=== PATIENT | female | born 1945 | race Caucasian/White ===

== ENCOUNTER 2018-07-31 09:17 | Inpatient (IN) ==
[2018-07-25 14:44] LABS: Appearance,Urine CLEAR; Bacteria,Urine 0 /hpf (0); Bilirubin,Urine NEG (NEG); Color,Urine YELLOW; Glucose,Urine (UA) NEGATIVE (NEG); Leukocyte Esterase,Urine NEG /uL (NEG); Protein,Urine NEG (NEG); Urine Blood 0.03 mg/dL (<0.03); Urine RBC 2 /hpf (0-1); Urine Squamous Epithelial Cell 1 /hpf (0-4); Urine Transitional Epi Cells < 1 /hpf (0-2); Urine WBC 1 /hpf (0-4); Urobilinogen,Urine NEG (NEG)
[2018-07-25 18:45] LABS: Blood Urea Nitrogen 17 mg/dl (8-23)
[2018-07-25 18:55] LABS: Basophils # (Auto) 0 K/mcL (0.0-0.3); Basophils % (Auto) 0.6 % (0.0-2.0); Eosinophils # (Auto) 0.3 K/mcL (0.0-0.7); Eosinophils % (Auto) 4.5 % (0.0-7.0); Lymphocytes # (Auto) 1.5 K/mcL (1.5-4.8); Lymphocytes % (Auto) 20.6 % (15.5-49.0); Mean Cell Volume 90.3 fL (80.0-100.0); Mean Corpuscular HGB Conc 33.6 g/dL (31.0-36.0); Mean Corpuscular Hemoglobin 30.3 pg (26.0-34.0); Monocytes # (Auto) 0.4 K/mcL (0.1-0.9); Monocytes % (Auto) 5.3 % (1.0-12.0); Platelet Count 308 K/mcL (140-440); RBC 4.23 M/mcL (4.00-5.20); Red Cell Distribution Width 12.4 % (11.5-14.5)
[2018-07-25 20:12] LABS: Estimated Average Glucose(eAG) 137 mg/dL; Hemoglobin A1C 6.4 % HGB (4.0-6.0)
[~2018-07-31 09:17] MED LIST: 0.9 % SODIUM CHLORIDE 9 ML, KETOROLAC 30 MG, ROPIVACAINE HCL/PF 49.5 ML, EPINEPHrine 0.... IJ SCH; ACETAMINOPHEN 500 MG TABLET PO SCH; CELECOXIB 200 MG CAPSULE PO SCH; PREGABALIN 75 MG CAPSULE PO SCH; ceFAZolin 1 GM VIAL IV SCH; oxyCODONE 10 MG TAB.ER.12H PO SCH
[2018-07-31] MEDS ORDERED: ONDANSETRON 4 MG/2 ML VIAL IV ONE (12:05)
[2018-07-31] MEDS ORDERED: MIDAZOLAM 5 MG/5 ML VIAL IV ONE (12:05)
[2018-07-31] MEDS ORDERED: DEXAMETHASONE 10 MG/ML VIAL IV ONE (12:05)
[2018-07-31] MEDS ORDERED: TRANEXAMIC ACID 1,000 MG/10 ML VIAL IV ONE ×2 (12:05→13:13)
[2018-07-31] MEDS ORDERED: ePHEDrine 50 MG/ML AMPUL IV ONE (12:05)
[2018-07-31] MEDS ORDERED: PROPOFOL 200 MG/20 ML VIAL IV ONE (12:05)
[2018-07-31] MEDS ORDERED: LIDOCAINE HCL/PF 100 MG/5 ML SYRINGE IV ONE (12:05)
[2018-07-31] MEDS ORDERED: GENTAMICIN SULFATE 800 MG/20 ML VIAL IR ONE (12:21)
[2018-07-31] MEDS ORDERED: FLUMAZENIL 0.1 MG/ML ML IV PRN (13:07)
[2018-07-31] MEDS ORDERED: diphenhydrAMINE 50 MG/ML VIAL IV PRN (13:07)
[2018-07-31] MEDS ORDERED: fentaNYL 100 MCG/2 ML VIAL IV PRN (13:07)
[2018-07-31] MEDS ORDERED: ONDANSETRON 4 MG/2 ML VIAL IV PRN ×2 (13:07→13:13)
[2018-07-31] MEDS ORDERED: BENZOCAINE/MENTHOL 1 LOZENGE PO PRN ×2 (13:07→13:13)
[2018-07-31] MEDS ORDERED: LACTATED RINGERS 250 ML IV PRN (13:07)
[2018-07-31] MEDS ORDERED: NALOXONE HCL 0.4 MG/ML VIAL IV PRN (13:07)
[2018-07-31] MEDS ORDERED: PROMETHAZINE 25 MG/ML VIAL IV PRN (13:07)
[2018-07-31] MEDS ORDERED: IPRATROPIUM/ALBUTEROL 3 ML AMPUL.NEB NEB PRN (13:07)
[2018-07-31] MEDS ORDERED: MEPERIDINE 25 MG/ML SYRINGE IV PRN (13:07)
--- NOTE | 2018-07-31 13:12 | Brief Operative Note ---
Date of procedure: 07/31/18 Pre-op diagnosis: Left hip djd Post-op diagnosis: same Procedure: Left hip tarah Grafts/Implants: Yes Anesthesia: GETA Complications: none Surgeon: Camacho Elise High Value Associate: Niranjan Rice Estimated blood loss (cc): 50 Specimens Removed/Pathology: none sent Condition: stable Disposition: PACU
[2018-07-31] MEDS ORDERED: ACETAMINOPHEN 325 MG TABLET PO PRN (13:13)
[2018-07-31] MEDS ORDERED: FLEETS ADULT ENEMA PR PRN (13:13)
[2018-07-31] MEDS ORDERED: BISACODYL 10 MG SUPP.RECT PR PRN (13:13)
[2018-07-31] MEDS ORDERED: TEMAZEPAM 15 MG CAPSULE PO PRN (13:13)
[2018-07-31] MEDS ORDERED: HYDROmorphone 2 MG/ML VIAL IV PRN (13:13)
[2018-07-31] MEDS ORDERED: POLYETHYLENE GLYCOL 3350 17 GM PACKET PO PRN (13:13)
[2018-07-31] MEDS ORDERED: LACTATED RINGERS 1,000 ML IV SCH (13:15)
[2018-07-31] MEDS ORDERED: ALENDRONATE SODIUM 70 MG TABLET PO SCH (13:15)
[2018-07-31] MEDS: 0.9 % SODIUM CHLORIDE 10 ML SYRINGE IV SCH ×2 (14:13→21:34)
--- NOTE | 2018-07-31 14:21 | XRay Report ---
CLINICAL INFORMATION: Left hip replacement TECHNIQUE: AP pelvis. Crosstable lateral left hip COMPARISON: None. FINDINGS: Status post left total hip arthroplasty. Acetabular and femoral head components are in anatomic position. There is postsurgical soft tissue and intra-articular gas. No pelvic fracture. Right hip is negative. There is degenerative disc disease in the lower lumbar spine. IMPRESSION: Status post left total hip arthroplasty Interpreted and Authenticated by: Magnus Kam 07/31/18
--- NOTE | 2018-07-31 14:28 | Operative Note ---
DATE OF OPERATION: 07/31/2018 PREOPERATIVE DIAGNOSIS: Left hip degenerative arthritis, severe. POSTOPERATIVE DIAGNOSIS: Left hip degenerative arthritis, severe. PROCEDURE: Left total hip arthroplasty. SURGEON: Camacho Elise M.D. RADIATION CONTROL HEALTH PHYSICIST: Niranjan Rice PA-C. ANESTHESIA: General LMA anesthesia. COMPLICATIONS: None. DESCRIPTION OF PROCEDURE: The patient was brought to the operating room and put to sleep with general LMA anesthesia. Once asleep, the patient had the left hip sterilely prepped and draped in the usual sterile fashion. Timeout was performed confirming the operative site. Ioban was placed over the skin. We then made a superior approach to the hip. Preop antibiotics and tranexamic acid had been given. Once it all had been confirmed, we then proceeded with a total hip arthroplasty. We exposed the superior portion of the hip and capsule. We then placed retractors to release the piriformis obturator internus and superior capsule. We dislocated the hip superiorly and then made our neck cut at 30 mm below the center of hip rotation. Once done, we then reamed up the size on the hip up to a 48, implanted a 48 cup with a 40 mm screw. We then placed a standard liner with no garcia. The cup had been positioned in 20 degrees of anteversion and 40 degrees of inclination. Once done, we then reamed up on the hip up to the size for a 5, broached to a 5. We trialed the size 5 with a standard neck length. This seemed to fit very nicely. We then cemented into place a size 5 stem with a canal restrictor and a 12 mm distal centralizer. Once the cement was set up, we then trialed the 2.5 head. This was reduced and x-ray taken that showed perfect leg length and alignment. We then implanted a 2.5 plus ceramic head which was 36 mm in diameter. This was reduced, very stable. We irrigated, repaired the capsule with #1 Ethibond. We closed the fascial layer with #1 Stratafix interlocking ___. The patient tolerated this well. There was no complication. We closed the skin with Stratafix and adhesive closure. The patient had a sterile bandage applied. Blood loss was about 100 mL. MAINE:joel Job ID: [id number] Doc ID: [id number] Camacho Elise MD
[2018-07-31] MEDS: IPRATROPIUM/ALBUTEROL 3 ML AMPUL.NEB NEB PRN (17:25)
[2018-07-31] MEDS: 0.45 % SODIUM CHLORIDE 1,000 ML IV SCH ×2 (17:41→23:17)
[2018-07-31] MEDS: ceFAZolin 1 GM VIAL IV SCH (19:23)
[2018-07-31] MEDS: ASPIRIN 325 MG ENTERIC COATED TABLET PO SCH (21:11)
[2018-07-31] MEDS: SENNOSIDES 1 TABLET PO SCH (21:11)
[2018-07-31] MEDS: AMITRIPTYLINE 25 MG TABLET PO SCH (21:12)
[2018-07-31] MEDS: DOCUSATE SODIUM 100 MG CAPSULE PO SCH (21:12)
[2018-07-31] MEDS: FLUTICASONE/SALMETEROL 250/50 INHALER #14 INH SCH (21:13)
[2018-07-31] MEDS: oxyCODONE/APAP 5/325MG TABLET PO PRN ×2 (21:32→23:14)
[2018-07-31] MEDS: KETOROLAC 15 MG/ML VIAL IV PRN (23:12)
[2018-08-01] MEDS: ceFAZolin 1 GM VIAL IV SCH (03:08)
[2018-08-01] MEDS: 0.9 % SODIUM CHLORIDE 10 ML SYRINGE IV SCH ×4 (03:17→20:58)
[2018-08-01] MEDS: oxyCODONE/APAP 5/325MG TABLET PO PRN ×5 (03:52→20:57)
--- NOTE | 2018-08-01 07:40 | Orthopedic Progress Note ---
Subjective Patient information: Note initiated : 08/01/18 at 7:39 am Service Date, if different from initiated Date: [] Patient: Latoya Choudhury 73 y/o F admitted on 07/31/18 for Left Total Hip Arthroplasty. Chief Complaint: [Pt is stable this morning on post operative day 1 without any significant concerns or complaints. Patients vital signs have remained stable. Patients dressing is dry and is grossly intact from a neurovascular and motor standpoint. Patients 10 point ROS is otherwise negative. ] Objective Vital signs: Vital Signs Temp Pulse Pulse Resp BP Pulse Ox 08/01/18 07:03 98.3 F 68 18 97/55 93 08/01/18 03:25 97.5 F 75 18 129/63 99 08/01/18 00:00 97.7 F 96 H 20 138/73 95 07/31/18 23:17 95 07/31/18 21:23 92 07/31/18 20:00 98.1 F 91 H 20 138/77 98 07/31/18 19:54 96 07/31/18 17:34 98 H 16 07/31/18 17:26 98 07/31/18 17:08 134/72 97 07/31/18 16:08 130/72 99 07/31/18 15:38 127/75 99 07/31/18 15:09 120/62 96 07/31/18 14:53 126/71 99 07/31/18 14:38 121/68 100 07/31/18 14:23 122/62 100 07/31/18 14:08 116/66 100 07/31/18 14:05 75 18 116/66 100 07/31/18 13:59 97.9 F 72 19 123/51 96 07/31/18 13:51 97.0 F 70 13 127/69 98 07/31/18 13:41 96.8 F L 71 13 116/62 100 07/31/18 13:31 97.7 F 70 13 118/60 100 07/31/18 13:25 68 14 104/53 100 07/31/18 13:20 70 14 108/61 100 07/31/18 13:18 97.5 F 70 15 116/55 98 07/31/18 09:17 76 18 137/70 100 Intake and Output 07/31/18 08/01/18 08/01/18 21:59 05:59 13:59 Intake Total 290 / 290 1350 / 1350 Output Total 53 / 53 452 / 452 Balance 237 / 237 898 / 898 Intake: IV 1000 / 1000 Sodium Chloride 0.45% 1,000 ml 1000 / 1000 @ 100 mls/hr IV .Q10H BRITTNI Rx#: [id number] Oral 240 / 240 350 / 350 IV - Manual Only 50 / 50 Output: Void Amount 50 / 50 450 / 450 # of times incontinent of urine 3 / 3 2 / 2 Other: Meal Dinner Yogurt grahm crackers Percent of Meal Consumed 100% 100% 100% Feeding Ability Independent Independent Independent Urine Color Bright Yellow Weight 117 lb 8 oz Intake & Output: Intake & Output 07/31/18 08/01/18 08/01/18 21:59 05:59 13:59 Intake Total 290 / 290 1350 / 1350 Output Total 53 / 53 452 / 452 Balance 237 / 237 898 / 898 Weight 117 lb 8 oz Intake: IV 1000 / 1000 Sodium Chloride 0.45% 1,000 ml 1000 / 1000 @ 100 mls/hr IV .Q10H [facility], [facility]–1983 Rx#: [id number] Oral 240 / 240 350 / 350 IV - Manual Only 50 / 50 Output: Void Amount 50 / 50 450 / 450 # of times incontinent of urine 3 / 3 2 / 2 Other: Meal Dinner Yogurt grahm crackers Percent of Meal Consumed 100% 100% 100% Feeding Ability Independent Independent Independent Urine Color Bright Yellow Incision: Yes healing Incision clean and dry: Yes Dressing: Yes clean Weight bearing status: full Neurological exam IM: Yes motor sensory intact, Yes neurovascular intact Extremities exam IM: Yes Foot pink and warm, Yes neurovascular intact - Labs CBC & BMP: 08/01/18 04:20 07/25/18 13:27 Labs: Orthopedic Labs 07/25/18 13:26 PT 12.9 INR 1.0 APTT 33 08/01/18 07/25/18 04:20 13:27 Hgb 12.8 Hct 32.7 L 38.2 Assessment and Plan (1) Hx of total hip arthroplasty The patient has been educated regarding dressing care, Physical Therapy recommendations, home exercises, restrictions, and follow up appointments. The patient has had all necessary DME prescribed. The patient has remained relatively stable during their hospital course. Status: Acute
--- NOTE | 2018-08-01 07:43 | Discharge Summary ---
Ortho Discharge - [facility] - Patient Instructions Diet: Regular Diet Activity: activity as tolerated, weight bearing as tolerated Total Hip Protocol: Follow activity instructions as provided by Physical Therapy. Dressing Care: May shower in 2 days - Problem Maintenance (1) Hx of total hip arthroplasty Status: Acute - Follow Up Plan Follow Up Appointments: Niranjan Rice PA-C [Physician Mirror Inspector] - 08/15/18 1:50 pm Disposition: Home, Self-Care Prognosis: Good Rehab Potential: Good I certify that the patient requires SNF services: No Overall status at discharge: patient is progressing back to baseline - Orders For Discharge Prescriptions: Aspirin [Ecotrin] 325 mg PO BID #60 tab.ec Docusate Sodium [Colace] 100 mg PO BID #60 cap oxyCODONE/APAP [Percocet 5-325 mg] 1 - 2 tab PO Q4HP PRN #75 tab PRN Reason: Pain Level 3-6
[2018-08-01] MEDS: FLUTICASONE/SALMETEROL 250/50 INHALER #14 INH SCH ×2 (08:21→21:48)
[2018-08-01] MEDS: FLUTICASONE PROPIONATE SPRAY.NAS NS SCH (08:22)
[2018-08-01] MEDS: DOCUSATE SODIUM 100 MG CAPSULE PO SCH ×2 (09:03→20:57)
[2018-08-01] MEDS: ASPIRIN 325 MG ENTERIC COATED TABLET PO SCH ×2 (09:03→20:57)
[2018-08-01] MEDS: LOSARTAN 50 MG TABLET PO SCH (09:03)
[2018-08-01] MEDS: CALCIUM W/VIT D3 500 MG TABLET PO SCH (09:03)
[2018-08-01] MEDS: MULTIVIT,THER IRON,CA,FA & MIN 1 TABLET PO SCH (09:03)
[2018-08-01] MEDS: IPRATROPIUM/ALBUTEROL 3 ML AMPUL.NEB NEB PRN ×2 (11:18→18:42)
[2018-08-01] MEDS: AMITRIPTYLINE 25 MG TABLET PO SCH (20:57)
[2018-08-01] MEDS: SENNOSIDES 1 TABLET PO SCH (20:57)
[2018-08-01] MEDS: KETOROLAC 15 MG/ML VIAL IV PRN (23:13)
[2018-08-02] MEDS: IPRATROPIUM/ALBUTEROL 3 ML AMPUL.NEB NEB PRN ×3 (01:17→13:14)
[2018-08-02] MEDS: 0.9 % SODIUM CHLORIDE 10 ML SYRINGE IV SCH ×3 (04:00→22:54)
--- NOTE | 2018-08-02 07:12 | Orthopedic Progress Note ---
Subjective Patient information: Note initiated : 08/02/18 at 7:11 am Service Date, if different from initiated Date: [] Patient: Latoya Choudhury 73 y/o F admitted on 07/31/18 for Left Total Hip Arthroplasty. Chief Complaint: [continue to do well with no nausea or vomiting amb well 200 feet] Objective Vital signs: Vital Signs Temp Pulse Pulse Resp BP BP Pulse Ox 08/02/18 06:52 98.7 F 20 115/58 97 08/02/18 04:00 97.7 F 69 16 92/54 97 08/02/18 01:18 83 17 08/01/18 23:35 97.9 F 83 18 107/57 96 08/01/18 20:00 98.1 F 73 18 126/70 96 08/01/18 19:47 73 16 94 08/01/18 18:45 75 16 08/01/18 16:09 97.5 F 89 14 100/67 96 08/01/18 12:29 98.1 F 86 14 103/61 94 Intake and Output 08/01/18 08/02/18 08/02/18 21:59 05:59 13:59 Intake Total 200 / 200 Output Total 350 / 350 100 / 100 Balance -350 / -350 100 / 100 Intake: Oral 200 / 200 Output: Void Amount 350 / 350 100 / 100 Other: Meal Dinner Percent of Meal Consumed 50% Urine Color Bright Yellow Bright Yellow # Voids 1 1 Weight 118 lb Intake & Output: Intake & Output 08/01/18 08/02/18 08/02/18 21:59 05:59 13:59 Intake Total 200 / 200 Output Total 350 / 350 100 / 100 Balance -350 / -350 100 / 100 Weight 118 lb Intake: Oral 200 / 200 Output: Void Amount 350 / 350 100 / 100 Other: Meal Dinner Percent of Meal Consumed 50% Urine Color Bright Yellow Bright Yellow # Voids 1 1 Incision: Yes healing Incision clean and dry: Yes Dressing: Yes clean Weight bearing status: full Neurological exam IM: Yes oriented X3, Yes neurovascular intact Extremities exam IM: Yes Foot pink and warm, Yes neurovascular intact - Periperhal Pulses Peripheral pulses: 1+: dorsalis pedis (L), 2+: dorsalis pedis (R) - Labs CBC & BMP: 08/01/18 04:20 11/06/18 13:27 Labs: Orthopedic Labs 07/25/18 13:26 PT 12.9 INR 1.0 APTT 33 08/01/18 07/25/18 04:20 13:27 Hgb 12.8 Hct 32.7 L 38.2
[2018-08-02] MEDS: oxyCODONE/APAP 5/325MG TABLET PO PRN ×3 (07:18→15:56)
[2018-08-02] MEDS: FLUTICASONE PROPIONATE SPRAY.NAS NS SCH (08:57)
[2018-08-02] MEDS: ASPIRIN 325 MG ENTERIC COATED TABLET PO SCH ×2 (08:57→20:44)
[2018-08-02] MEDS: MULTIVIT,THER IRON,CA,FA & MIN 1 TABLET PO SCH (08:57)
[2018-08-02] MEDS: FLUTICASONE/SALMETEROL 250/50 INHALER #14 INH SCH ×2 (08:57→19:46)
[2018-08-02] MEDS: LOSARTAN 50 MG TABLET PO SCH (08:57)
[2018-08-02] MEDS: CALCIUM W/VIT D3 500 MG TABLET PO SCH (08:57)
[2018-08-02] MEDS: DOCUSATE SODIUM 100 MG CAPSULE PO SCH ×2 (08:57→20:44)
[2018-08-02] MEDS: MAGNESIUM HYDROXIDE 30 ML ORAL.SUSP PO PRN (15:57)
[2018-08-02] MEDS: SENNOSIDES 1 TABLET PO SCH (20:44)
[2018-08-02] MEDS: AMITRIPTYLINE 25 MG TABLET PO SCH (20:44)
[2018-08-03] MEDS: IPRATROPIUM/ALBUTEROL 3 ML AMPUL.NEB NEB PRN ×2 (02:45→07:03)
[2018-08-03] MEDS: MAGNESIUM HYDROXIDE 30 ML ORAL.SUSP PO PRN (06:46)
[2018-08-03] MEDS: 0.9 % SODIUM CHLORIDE 10 ML SYRINGE IV SCH (06:46)
[2018-08-03] MEDS: oxyCODONE/APAP 5/325MG TABLET PO PRN ×2 (06:46→10:29)
[2018-08-03] MEDS: FLUTICASONE PROPIONATE SPRAY.NAS NS SCH (08:38)
[2018-08-03] MEDS: MULTIVIT,THER IRON,CA,FA & MIN 1 TABLET PO SCH (08:41)
[2018-08-03] MEDS: FLUTICASONE/SALMETEROL 250/50 INHALER #14 INH SCH (08:41)
[2018-08-03] MEDS: LOSARTAN 50 MG TABLET PO SCH (08:41)
[2018-08-03] MEDS: DOCUSATE SODIUM 100 MG CAPSULE PO SCH (08:41)
[2018-08-03] MEDS: ASPIRIN 325 MG ENTERIC COATED TABLET PO SCH (08:41)
[2018-08-03] MEDS: CALCIUM W/VIT D3 500 MG TABLET PO SCH (08:41)
== END 2018-08-03 10:50 | disposition home or self-care (01) | DRG 470 ==
LOC: MEDSUR 09:17
PROVIDERS: ADMIT Orthopaedic Surgery; ATTEND Orthopaedic Surgery
CPT/HCPCS: 62322; 73501; 73502; 97161; 97166; C1713; C1776; J0690; J1100; J1580; J1885; J2001; J2250; J2405; J7120; J7620; J7620-GY